=== PATIENT | female | born 1955 | race Caucasian/White ===

== ENCOUNTER 2017-09-30 02:18 | Emergency (ER) | payer SELFPAY ==
[~2017-09-30] VITALS: Ht 170.2 cm; Wt 114.0 kg
[~2017-09-30 02:18] MED LIST: FLUOXETINE10 M2 PO; FLUOXETINE20 MG PO; FOLIC ACID1 MG PO; XANAX0.5 MG PO
[2017-09-30 03:11] LABS: HEMATOCRIT 45.4 % (37.0-47.0); HEMOGLOBIN 15.6 g/dl (12.0-16.0); IMMATURE GRANULOCYTES 0.1 % (0.0-1.0); MEAN CELL VOLUME 87.3 fL CALC (80.0-100.0); MEAN CORPUSCULAR HGB CONC 34.4 g/L CALC (32.0-36.0); NEUT# 4.32 thou/uL (2.00-7.15); RED BLOOD COUNT 5.2 mill/uL (4.20-5.60); RED CELL DISTRI WIDTH 12.3 % (11.5-15.5)
[2017-09-30 03:24] LABS: ALBUMIN 4.1 g/dL (3.2-5.0); ALKALINE PHOSPHATASE 65 u/l (38-126); ANION GAP 16 (6-22 (CALC)); BILIRUBIN, TOTAL 0.7 mg/dL (0.0-1.4); BUN 23 mg/dL (8-23); BUN/CREATININE RATIO 31 (12-20 (CALC)); CARBON DIOXIDE 23 mmol/l (22-30); CHLORIDE 107 mmol/l (95-108); CREATININE 0.7 mg/dL (0.5-1.0); GFR > 60 ML/MIN (>=60 (CALC)); GFR FOR AFR.AMER. > 60 ML/MIN (>=60 (CALC)); POTASSIUM 3.6 mmol/l (3.5-5.1); SGOT/AST 30 u/l (9-36); SGPT/ALT 46 u/l (11-66); SODIUM 143 mmol/l (137-146); TOTAL PROTEIN 7.5 g/dL (6.3-8.2)
[2017-09-30 03:37] LABS: MYOGLOBIN 40 ng/mL (0 - 62)
[2017-09-30 04:36] VITALS: BP 140/64
== END 2017-09-30 04:59 | disposition home or self-care (01) | DRG 310 ==
LOC: ED 02:18
PROVIDERS: Emergency Medicine
DX: R00.2 Palpitations (principal); E03.9 Hypothyroidism, unspecified; F41.9 Anxiety disorder, unspecified

== ENCOUNTER 2023-12-07 20:32 | Emergency (ER) | payer MEDICARE, OTHER ==
[~2023-12-07] VITALS: Ht 170.2 cm; Wt 152.0 kg
[2023-12-07] VITALS (8 sets, daily range): BP systolic 103–160; BP diastolic 65–74
[2023-12-07] MEDS ORDERED: SODIUM CHLORIDE 0.9% 1,000 ML IV ONE (21:00)
[2023-12-07] MEDS ORDERED: FLUOXETINE HYDR20 MG PO (21:09)
[2023-12-07] MEDS ORDERED: AMLODIPINE BESYL5 MG PO (21:10)
[2023-12-07] MEDS ORDERED: OMEPRAZOLE DR40 MG PO (21:10)
[2023-12-07] MEDS ORDERED: VENTOLIN HFA108 MCG IN (21:12)
[2023-12-07] MEDS ORDERED: PROPAFENONE225 MG PO (21:13)
[2023-12-07 21:32] LABS: BASO% 0.4 % (0-3); EOS% 0.8 % (0-8); HEMATOCRIT 44.1 % (37.0-47.0); HEMOGLOBIN 15.1 g/dl (12.0-16.0); IMMATURE GRANULOCYTES 0.3 % (0.0-5.0); LYMPH% 20.9 % (15-41); MEAN CELL VOLUME 88.4 fL CALC (80.0-100.0); MEAN CORPUSCULAR HGB 30.3 pG CALC (26.0-32.0); MEAN CORPUSCULAR HGB CONC 34.2 g/dL CAL (32.0-36.0); MONO% 5.7 % (2-13); NEUT# 9.37 thou/uL (2.00-7.15); NEUT% 71.9 % (42-76); RED BLOOD COUNT 4.99 mill/uL (4.20-5.60); RED CELL DISTRI WIDTH 12.7 % (11.5-15.5)
[2023-12-07 21:58] LABS: ALBUMIN 3.8 g/dL (3.2-5.0); ALKALINE PHOSPHATASE 69 u/l (38-126); ANION GAP 10 (6-22 (CALC)); BUN 18 mg/dL (8-23); BUN/CREATININE RATIO 20 (12-20 (CALC)); CARBON DIOXIDE 22 mmol/l (22-30); CHLORIDE 104 mmol/l (95-108); CREATININE 0.9 mg/dL (0.5-1.0); ESTIMATED GFR 69 ML/MIN (>=90 (CALC)); MAGNESIUM 1.9 mg/dL (1.6-2.3); POTASSIUM 3.4 mmol/l (3.5-5.1); SGOT/AST 50 u/l (9-36); SODIUM 133 mmol/l (137-146); TOTAL PROTEIN 7.2 g/dL (6.3-8.2)
[2023-12-07 21:59] LABS: BILIRUBIN, TOTAL 1.2 mg/dL (0.02-1.3)
[2023-12-07] MEDS ORDERED: LACTATED RINGER'S 1,000 ML IV ONE (22:55)
[2023-12-07] MEDS ORDERED: POTASSIUM CHLORIDE 20 MEQ/TAB PO ONE (23:00)
[2023-12-08 00:20] LABS: URINE BLOOD DIPSTICK Negative (NEGATIVE); URINE GLUCOSE - DIPSTICK Negative (NEGATIVE); URINE KETONE Negative (NEGATIVE); URINE NITRITE - DIPSTICK Negative (Negative); URINE PROTEIN - DIPSTICK 30 mg/dL (NEG-TRACE)
[2023-12-08 00:23] LABS: URINE BACTERIA FEW hpf; URINE COLOR Yellow; URINE LEUK ESTERASE Small (NEGATIVE); URINE RBC 0-2 RBC/hpf (0-5); URINE SQUAMOUS EPITHELIAL CELL FEW EPI/hpf (0-FEW); URINE WBC 20-50 WBC/hpf (0-5)
[2023-12-08 00:30] VITALS: BP 134/74
== END 2023-12-08 01:45 | disposition home or self-care (01) ==
LOC: ED 20:32
PROVIDERS: Family Medicine
DX: K52.9 Noninfective gastroenteritis and colitis, unspecified (principal); E87.6 Hypokalemia; F41.9 Anxiety disorder, unspecified; K21.9 Gastro-esophageal reflux disease without esophagitis; Z20.822 Contact with and (suspected) exposure to COVID-19

== ENCOUNTER 2024-06-16 12:14 | Emergency (ER) | payer MEDICARE, OTHER ==
[2024-06-16] VITALS (8 sets, daily range): BP systolic 137–196; BP diastolic 81–139
[~2024-06-16] VITALS: Ht 170.2 cm; Wt 141.0 kg
[~2024-06-16 12:14] MED LIST changes: +AMLODIPINE BESYL5 MG PO; +FLUOXETINE HYDR20 MG PO; +OMEPRAZOLE DR40 MG PO; +PROPAFENONE225 MG PO; +VENTOLIN HFA108 MCG IN
[2024-06-16] MEDS ORDERED: ONDANSETRON HCl 4 MG/2 ML SDV IV ONE (12:40)
[2024-06-16] MEDS ORDERED: SODIUM CHLORIDE 0.9% 500 ML IV ONE (12:40)
[2024-06-16 13:04] LABS: BASO% 0.3 % (0-3); EOS% 0.2 % (0-8); IMMATURE GRANULOCYTES 0.3 % (0.0-5.0); LYMPH% 9.1 % (15-41); MEAN CELL VOLUME 89.6 fL CALC (80.0-100.0); MEAN CORPUSCULAR HGB 30.5 pG CALC (26.0-32.0); MEAN CORPUSCULAR HGB CONC 34.1 g/dL CAL (32.0-36.0); MONO% 6.8 % (2-13); NEUT# 5.12 thou/uL (2.00-7.15); NEUT% 83.3 % (42-76); RED BLOOD COUNT 4.91 mill/uL (4.20-5.60); RED CELL DISTRI WIDTH 12.5 % (11.5-15.5)
[2024-06-16 13:15] LABS: ALBUMIN 4.5 g/dL (3.2-5.0); ALKALINE PHOSPHATASE 78 u/l (38-126); ANION GAP 12 (6-22 (CALC)); BILIRUBIN, TOTAL 1.2 mg/dL (0.02-1.3); BUN 7 mg/dL (8-23); BUN/CREATININE RATIO 10 (12-20 (CALC)); CARBON DIOXIDE 24 mmol/l (22-30); CHLORIDE 99 mmol/l (95-108); CREATININE 0.7 mg/dL (0.5-1.0); ESTIMATED GFR 92 ML/MIN (>=90 (CALC)); POTASSIUM 3.6 mmol/l (3.5-5.1); SGOT/AST 82 u/l (9-36); SODIUM 132 mmol/l (137-146); TOTAL PROTEIN 7.9 g/dL (6.3-8.2)
[2024-06-16] MEDS ORDERED: KETOROLAC TROMETHAMINE 15 MG/ML SDV IV ONE (14:30)
[2024-06-16] MEDS ORDERED: predniSONE 20 MG/TAB PO ONE (14:30)
[2024-06-16] MEDS ORDERED: OSELTAMIVIR PHOSPHATE 75 MG/TAB CAP PO ONE (14:30)
[2024-06-16] MEDS ORDERED: TAM75CAP PO (14:38)
[2024-06-16] MEDS ORDERED: MEDDOSEPAK PO (14:38)
== END 2024-06-16 14:59 | disposition home or self-care (01) ==
LOC: ED 12:14
PROVIDERS: Nurse Practitioner
DX: J10.1 Influenza due to other identified influenza virus with other respiratory manifestations (principal); I10 Essential (primary) hypertension; K21.9 Gastro-esophageal reflux disease without esophagitis; M06.9 Rheumatoid arthritis, unspecified; F41.9 Anxiety disorder, unspecified; Z20.822 Contact with and (suspected) exposure to COVID-19
CPT/HCPCS: J1885; J2405